=== PATIENT | male | born 1965 | race Two or more races ===

== ENCOUNTER 2021-01-08 01:39 | Inpatient (IN) | payer SELFPAY ==
[~2021-01-08] VITALS: Ht 182.9 cm; Wt 100.0 kg
--- NOTE | 2021-01-08 02:06 | PHYS DOC ---
Past Medical History Past Medical History: Alcoholism Past Surgical History: No Surgical History Smoking Status: Unknown if ever smoked Alcohol Use: Heavy General Adult EDM: Chief Complaint: ALCOHOL INTOXICATION HPI: HPI: 55-year-old male presents the emergency department after reportedly drinking alcohol and possibly falling. He is a poor historian, and cannot recall details of his history. He states he was at a [employer] party earlier today, was drinking alcohol, lost consciousness and then "cannot feel his feet "he speaks English only, civilian technician was used at the bedside for history taking. He is a overall poor historian secondary to his intoxication and clinical status Review of Systems: Review of Systems: ROS is otherwise impossible secondary to patient clinical condition Heart Score: C/O Chest Pain: No Allergies: Allergies: Allergies Coded Allergies Type Severity Reaction Last Updated Verified No Known Drug Allergies 01/08/21 No Physical Exam: PE: A: Airway intact. B: Bialteral breath sounds present and equal bilaterally. C: Radial pulses 2+ bilaterally. D: GCS 12 E: Patient fully exposed. Left ankle deformity is noted, forehead hematoma noted Head: Left forehead hematoma Ear: No blood in ear canals, no hemotympanum pinnae intact. Eyes: Pupils 3 mm equal and reactive, opens eyes spontaneously, no lacerations. Nose: No gross deformities, no fluid or blood from nares. Mouth: No lacerations or soft tissue deformities, teeth intact, airway intact, mucosa moist, no blood in oropharynx. Respiratory: Breath sounds equal bilaterally. Chest Wall: No obvious deformity. No lacerations, ecchymoses, or abrasion of the chest. Cardiovascular: Radial and dorsalis pedis 2+ and equal, extremities well perfused. Neck: No cervical spine tenderness. No bony step offs. Trachea midline. No soft tissue swelling. Back: No gross deformity or bony step-offs, no abrasions. Abdomen/Pelvis: Soft, non-tender, non-distended. No laxity in pelvis, nontender to palpation. Extremities: LUE: Moves independently and sensation intact, no deformities, lacerations or abrasions. RUE: Moves independently and sensation intact, no deformities, lacerations or abrasions. LLE: Left ankle deformity is noted, sensation intact, no lacerations or abrasions RLE: Moves independently and sensation intact, no deformities, lacerations or abrasions. Current Patient Data: Labs: Laboratory Tests Test 01/08/21 01:56 White Blood Count 7.0 x10^3/uL (4.0-11.0) Red Blood Count 4.99 x10^6/uL (4.30-5.70) Hemoglobin 15.5 g/dL (13.0-17.5) Hematocrit 43.3 % (39.0-53.0) Mean Corpuscular Volume 87 fL (79-100) Mean Corpuscular Hemoglobin 31 pg (25-35) Mean Corpuscular Hemoglobin Concent 36 g/dL (31-37) Red Cell Distribution Width 13.1 % (11.5-14.5) Platelet Count 196 x10^3/uL (140-400) Neutrophils (%) (Auto) 45 % (31-73) Lymphocytes (%) (Auto) 44 % (24-48) Monocytes (%) (Auto) 6 % (0-9) Eosinophils (%) (Auto) 5 % (0-3) Basophils (%) (Auto) 1 % (0-3) Neutrophils # (Auto) 3.1 x10^3/uL (1.8-7.7) Lymphocytes # (Auto) 3.1 x10^3/uL (1.0-4.8) Monocytes # (Auto) 0.4 x10^3/uL (0.0-1.1) Eosinophils # (Auto) 0.3 x10^3/uL (0.0-0.7) Basophils # (Auto) 0.0 x10^3/uL (0.0-0.2) Sodium Level 137 mmol/L (136-145) Potassium Level 3.4 mmol/L (3.5-5.1) Chloride Level 101 mmol/L (98-107) Carbon Dioxide Level 25 mmol/L (21-32) Anion Gap 11 (6-14) Blood Urea Nitrogen 10 mg/dL (8-26) Creatinine 1.0 mg/dL (0.7-1.3) Estimated GFR (Cockcroft-Gault) 78.2 BUN/Creatinine Ratio 10 (6-20) Glucose Level 127 mg/dL (70-99) Calcium Level 8.8 mg/dL (8.5-10.1) Total Bilirubin 0.2 mg/dL (0.2-1.0) Aspartate Amino Transf (AST/SGOT) 25 U/L (15-37) Alanine Aminotransferase (ALT/SGPT) 29 U/L (16-63) Alkaline Phosphatase 98 U/L (46-116) Troponin I Quantitative < 0.017 ng/mL (0.000-0.055) Total Protein 7.8 g/dL (6.4-8.2) Albumin 3.9 g/dL (3.4-5.0) Albumin/Globulin Ratio 1.0 (1.0-1.7) Ethyl Alcohol Level 297 mg/dL (0-10) Vital Signs: Vital Signs Date Time Temp Pulse Resp B/P (MAP) Pulse Ox O2 Delivery O2 Flow Rate FiO2 01/08/21 01:50 73 18 134/90 (105) 99 Radiology/Procedures: Radiology/Procedures: PROCEDURE: CT HEAD AND CERVICAL SPINE WO EXAMINATION: CT head and cervical spine without IV contrast INDICATION:55 years, Male, trauma. COMPARISON: None TECHNIQUE: Spiral acquisition of contiguous images from the skull base to the vertex were obtained. CT of the cervical spine was obtained using contiguous spiral imaging from the skull base to the upper thoracic level. Sagittal and coronal 2D reformatted series were provided by the technologist. Soft tissue and bone window algorithms were reviewed. Exposure: One or more of the following individualized dose reduction techniques were utilized for this examination: 1. Automated exposure control 2. Adjustment of the mA and/or kV according to patient size 3. Use of iterative reconstruction technique. FINDINGS: CT HEAD: The ventricles are normal in size. Neither mass, midline shift, intracranial hemorrhage, acute/subacute ischemic changes, nor extraaxial fluid collections are seen. The brain parenchyma is normal in appearance. Increased mucosal thickening of the ethmoid sinuses. Remaining paranasal sinuses, mastoid air cells, and middle ears are clear. The orbital contents appear within normal limits. CT CERVICAL SPINE: Anatomic alignment of the cervical spine is maintained. Neither fracture, subluxation, nor traumatic spondylolisthesis is seen. The vertebral body heights and intervertebral disk spaces are preserved. There is no evidence of a large intraspinal hematoma. The prevertebral and paravertebral soft tissues are within normal limits. IMPRESSION: CT HEAD: No evidence of acute intracranial abnormality. CT CERVICAL SPINE: No evidence of fracture or traumatic spondylolisthesis of the cervical spine. Electronically signed by: Nestor Godwin DO (01/08/2021 2:43 AM) Exam: Left ankle radiograph. Indication: Reason: ankle deformity / Spl. Instructions: / History: . Comparison: Unavailable. Findings: Mildly displaced obliquely oriented fracture of the medial malleolus with intra- articular extension. Also obliquely oriented distal fibular fracture extends to the level of the syndesmosis (Escoto B). No apparent intra-articular osseous fragments. No evidence of talar dome fracture. There is mild widening of the medial gutter. Asymmetric swelling about the ankle most pronounced of the late ral malleolus. Impression: 1. Mildly displaced obliquely oriented fracture of the medial malleolus with intra-articular extension. 2. Obliquely oriented distal fibular Escoto type B fracture. Electronically signed by: Nestor Godwin DO (01/08/2021 3:00 AM) Chest x-ray without obvious pneumothorax, fracture. Interpreted by me. Pelvis x-ray shows no acute fracture. Interpreted by me. Course & Med Decision Making: Course & Med Decision Making Patient with significant EtOH level, left ankle deformity, placed in a splint, orthopedics was consulted, patient will be admitted to the hospital under Dr. Capellan. I discussed the case with Dr. Moreno from trauma surgery who agrees with disposition family who later arrived at the bedside were updated on the patient's care. Tetanus was updated. Patient was maintaining his airway throughout the entire ED course Splint was placed in the emergency department: Left short leg splint. Neurovascularly intact, cap refill appropriate, splint appears in appropriate position with compartment soft. My Orders - ACE JONES DO Procedure Category Date Status Time Cardiac Monitoring ER 01/08/21 Transmitted 01:59 Continuous Pulse Ox ER 01/08/21 Transmitted 01:59 Cbc W Autodiff LAB 01/08/21 Complete 01:59 Comprehensive LAB 01/08/21 Complete Metabolic Panel 01:59 Protime With Inr LAB 01/08/21 In Process 01:59 Partial LAB 01/08/21 In Process Thromboplastin Time 01:59 Ua W Microscopic LAB 01/08/21 Logged 01:59 Drugs Of Abuse Ur LAB 01/08/21 Logged 01:59 Portable Chest 1v RAD 01/08/21 Taken 01:59 Pelvis RAD 01/08/21 Taken 01:59 Ethanol LAB 01/08/21 Complete 01:59 Insert 2 Large Bore KIRSTY 01/08/21 In Process Iv's 01:59 Vital Signs KIRSTY 01/08/21 In Process 01:59 End Tidal Co2 KIRSTY 01/08/21 In Process Monitoring 01:59 Type And Screen BBK 01/08/21 In Process 01:59 Troponini LAB 01/08/21 Complete 01:59 Ankle Left 3v RAD 01/08/21 Resulted 01:59 Ct Head [address] Cervical CT 01/08/21 Resulted Spine Wo 02:01 Er Bridge Order ADT 01/08/21 Transmitted 03:10 Code Status CODE 01/08/21 Transmitted 03:10 Vital Signs, Per Unit KIRSTY 01/08/21 In Process Protocol 03:10 Nothing By Mouth DIET 01/08/21 Transmitted Breakfast Bedrest KIRSTY 01/08/21 In Process 03:10 Ondansetron Pf PHA 01/08/21 Logged (Zofran) 03:15 Morphine Sulfate PHA 01/08/21 Logged (Morphine Sulfate) 03:15 Acetaminophen PHA 01/08/21 Logged (Tylenol) 03:15 Consult Physician By CONS 01/08/21 Transmitted Name 03:10 Consult Physician By CONS 01/08/21 Transmitted Name 03:10 Vital Signs Q4h KIRSTY 01/08/21 In Process 03:10 Splint KIRSTY 01/08/21 In Process 03:10 Diph,Pertuss(Acell),Tet PHA 01/08/21 Logged Vac/Pf (Adacel T 03:15 Departure Departure Impression: Primary Impression: Blunt head trauma Additional Impressions: Alcohol intoxication Closed left ankle fracture Disposition: 01 HOME / SELF CARE / HOMELESS Admitting Physician: WILVER ([place]) Condition: STABLE ACE JONES DO Jan 08, 2021 02:06
[2021-01-08 02:11] LABS: BASO % 1 % (0-3); EOS # 0.3 x10^3/uL (0.0-0.7); EOS % 5 % (0-3); HEMATOCRIT 43.3 % (39.0-53.0); HEMOGLOBIN 15.5 g/dL (13.0-17.5); LYMPH # 3.1 x10^3/uL (1.0-4.8); LYMPH % 44 % (24-48); MEAN CORPUSCULAR HEMOGLOBIN 31 pg (25-35); MEAN CORPUSCULAR HGB CONC 36 g/dL (31-37); MEAN CORPUSCULAR VOLUME 87 fL (79-100); MONO # 0.4 x10^3/uL (0.0-1.1); MONO % 6 % (0-9); NEUT # 3.1 x10^3/uL (1.8-7.7); NEUT % 45 % (31-73); PLATELET COUNT 196 x10^3/uL (140-400); RED BLOOD COUNT 4.99 x10^6/uL (4.30-5.70); RED CELL DISTRIBUTION WIDTH 13.1 % (11.5-14.5)
[2021-01-08 02:35] LABS: CALCIUM 8.8 mg/dL (8.5-10.1); GFR 78.2; POTASSIUM 3.4 mmol/L (3.5-5.1)
[2021-01-08 02:41] LABS: ALBUMIN 3.9 g/dL (3.4-5.0); TOTAL BILIRUBIN 0.2 mg/dL (0.2-1.0); TOTAL PROTEIN 7.8 g/dL (6.4-8.2)
--- NOTE | 2021-01-08 02:45 | RAD ---
EXAMINATION: CT head and cervical spine without IV contrast INDICATION:55 years, Male, trauma. COMPARISON: None TECHNIQUE: Spiral acquisition of contiguous images from the skull base to the vertex were obtained. C T of the cervical spine was obtained using contiguous spiral imaging from the skull base to the upper thoracic level. Sagittal and coronal 2D reformatted series were provided by the technologist. Soft t issue and bone window algorithms were reviewed. Exposure: One or more of the following individualized dose reduction techniques were utilized for thi s examination: 1. Automated exposure control 2. Adjustment of the mA and/or kV according to patient size 3. Use of iterative reconstruction technique. FINDINGS: CT HEAD: The ventricles are normal in size. Neither mass, midline shift, intracranial hemorrhage, acute/subacu te ischemic changes, nor extraaxial fluid collections are seen. The brain parenchyma is normal in linnette earance. Increased mucosal thickening of the ethmoid sinuses. Remaining paranasal sinuses, mastoid ai r cells, and middle ears are clear. The orbital contents appear within normal limits. CT CERVICAL SPINE: Anatomic alignment of the cervical spine is maintained. Neither fracture, subluxation, nor traumatic spondylolisthesis is seen. The vertebral body heights and intervertebral disk spaces are preserved. T here is no evidence of a large intraspinal hematoma. The prevertebral and paravertebral soft tissues are within normal limits. IMPRESSION: CT HEAD: No evidence of acute intracranial abnormality. CT CERVICAL SPINE: No evidence of fracture or traumatic spondylolisthesis of the cervical spine. Electronically signed by: Nestor Godwin DO (01/08/2021 2:43 AM) [facility]
--- NOTE | 2021-01-08 03:03 | RAD ---
Exam: Left ankle radiograph. Indication: Reason: ankle deformity / Spl. Instructions: / History: . Comparison: Unavailable. Findings: Mildly displaced obliquely oriented fracture of the medial malleolus with intra-articular extension. Also obliquely oriented distal fibular fracture extends to the level of the syndesmosis (Escoto B). No apparent intra-articular osseous fragments. No evidence of talar dome fracture. There is mild wideni ng of the medial gutter. Asymmetric swelling about the ankle most pronounced of the lateral malleolus . Impression: 1. Mildly displaced obliquely oriented fracture of the medial malleolus with intra-articular extensio n. 2. Obliquely oriented distal fibular Escoto type B fracture. Electronically signed by: Nestor Godwin DO (01/08/2021 3:00 AM) [facility]
[2021-01-08 03:13] LABS: PROTHROMBIN TIME PATIENT 12.6 SEC (11.7-14.0)
[2021-01-08] MEDS ORDERED: ACETAMINOPHEN 325 MG TABLET. PO PRN ×2 (03:15→08:45)
[2021-01-08] MEDS ORDERED: ONDANSETRON PF 4 MG/2 ML VIAL. IVP PRN ×2 (03:15→08:45)
[2021-01-08] MEDS ORDERED: DIPH,PERTUSS(ACELL),TET VAC/PF 0.5 ML SYRINGE. VAX IM ONE (03:30)
[2021-01-08] MEDS ORDERED: IV NORMAL SALINE 1000ML BAG 1,000 ML IV ONE (03:30)
[2021-01-08] MEDS: MORPHINE SULFATE 4 MG/ML INJ. IVP PRN ×2 (03:34→08:04)
--- NOTE | 2021-01-08 04:05 | RAD ---
Exam: Frontal and lateral views of the chest Indication: Reason: ankle deformity / Spl. Instructions: / History: Comparison: None Findings: Hypovolemic exam. Mildly prominent bronchovascular markings with associated peribronchial thickening. Scattered hazy bilateral airspace opacities, slightly increased in the left lower lobe no pleural ef fusion or pneumothorax. Normal cardiac silhouette. No acute osseous findings. Impression: Findings are suggestive of atypical/viral infection versus reactive airway disease, and/or atelectasi s. Electronically signed by: Nestor Godwin DO (01/08/2021 4:02 AM) [facility]
--- NOTE | 2021-01-08 04:07 | RAD ---
History: No acute osseous abnormalities. Comparison: None. Findings: No acute fracture. Normal alignment is preserved at bilateral hips. [id number] degene rative changes of bilateral hips and at the pubic symphysis. Impression: No acute osseous findings. Electronically signed by: Nestor Godwin DO (01/08/2021 4:04 AM) [facility]
[2021-01-08 04:36] LABS: BILIRUBIN,URINE NEGATIVE (NEG); CLARITY,URINE CLEAR; COLOR,URINE YELLOW; NITRITE,URINE NEGATIVE (NEG); PROTEIN,URINE NEGATIVE (NEG-TRACE); UROBILINOGEN,URINE 0.2 mg/dL (0.2 mg/dL)
[2021-01-08 04:43] LABS: BARBITURATES NEG (NEG); BENZODIAZEPINES NEG (NEG); CANNABINOIDS NEG (NEG); COCAINE NEG (NEG); METHADONE NEG (NEG); OPIATES POS (NEG); PHENCYCLIDINE NEG (NEG)
[2021-01-08 04:55] LABS: AMPHETAMINE/METHAMPHETAMINE NEG (NEG)
[2021-01-08 05:03] LABS: BACTERIA,URINE 0 /HPF (0-FEW); WBC,URINE OCC /HPF (0-4)
[2021-01-08 07:42] VITALS: BP 145/84
--- NOTE | 2021-01-08 08:35 | PDOC1 ---
History and Physical Date of Service: DOS: DATE: 01/08/21 TIME: 08:31 Chief Complaint: Chief Complain: Alcohol intoxication and ankle fracture History of Present Illness: HPI: History obtained from discussion with the ED physician and overnight hospitalist and chart review 55-year-old male presents the emergency department after reportedly drinking alcohol and possibly falling. He is a poor historian, and cannot recall details of his history. He states he was at a [employer] party earlier today, was drinking alcohol, lost consciousness and then "cannot feel his feet "he speaks Polish only, thermal engineer was used at the bedside for history taking. He is a overall poor historian secondary to his intoxication and clinical status Past Medical/Surgical History: PMH/PSH: Past Medical History: Alcoholism Past Surgical History: No Surgical History Allergies: Allergies: Coded Allergies: No Known Drug Allergies (Unverified , 01/08/21) Social History: Social History: Smoking Status: Unknown if ever smoked Alcohol Use: Heavy Current Medications: Current Medications Current Medications Ondansetron HCl (Zofran) 4 mg PRN Q8HRS PRN IVP NAUSEA/VOMITING 1ST CHOICE Last administered on 01/08/21at 03:34; Start 01/08/21 at 03:15; Stop 01/09/21 at 03:14 Morphine Sulfate (Morphine Sulfate) 4 mg PRN Q2HR PRN IVP SEVERE PAIN 7-10 Last administered on 01/08/21at 08:04; Start 01/08/21 at 03:15; Stop 01/09/21 at 03:14 Acetaminophen (Tylenol) 650 mg PRN Q4HRS PRN PO FEVER > 100.3'F; Start 01/08/21 at 03:15; Stop 01/09/21 at 03:14 Diphtheria/ Tetanus/Acell Pertussis (ADACEL TDap SYRINGE) 0.5 ml ONCE ONCE VAX IM Last administered on 01/08/21at 03:35; Start 01/08/21 at 03:30; Stop 01/08/21 at 03:31; Status DC Sodium Chloride 1,000 ml @ 1,000 mls/hr 1X ONCE IV Last administered on 01/08/21at 03:36; Start 01/08/21 at 03:30; Stop 01/08/21 at 04:29; Status DC ROS: Review of Systems Review of System Unable to obtain due to alcohol intoxication Physical Exam: Vital Signs: Vital Signs Date Time Temp Pulse Resp B/P (MAP) Pulse Ox O2 Delivery O2 Flow Rate FiO2 01/08/21 08:04 18 97 Room Air 01/08/21 03:57 94 133/85 (101) Physcial Exam: General: Well developed, well nourished, no acute distress, well appearing HEENT: Pupils equally round and reactive to light, EOMI, no discharge, normal conjunctiva Neck: Supple, no nuchal rigidity, no JVD, trachea midline, no tenderness Cardiac: RRR, no murmurs, no gallops, no rubs Chest/Lungs: CTAB, no wheeze, no rhonchi, no crackles Abdomen: soft, non-distended, no guarding, no peritoneal signs, non-tender Back: No tenderness Extremities: Left ankle deformity Neuro: Alert and oriented x 4, no focal deficits, normal speech Labs: Labs: Laboratory Tests Test 01/08/21 01:56 01/08/21 02:45 01/08/21 04:00 01/08/21 04:23 White Blood Count 7.0 x10^3/uL (4.0-11.0) Red Blood Count 4.99 x10^6/uL (4.30-5.70) Hemoglobin 15.5 g/dL (13.0-17.5) Hematocrit 43.3 % (39.0-53.0) Mean Corpuscular Volume 87 fL (79-100) Mean Corpuscular Hemoglobin 31 pg (25-35) Mean Corpuscular Hemoglobin Concent 36 g/dL (31-37) Red Cell Distribution Width 13.1 % (11.5-14.5) Platelet Count 196 x10^3/uL (140-400) Neutrophils (%) (Auto) 45 % (31-73) Lymphocytes (%) (Auto) 44 % (24-48) Monocytes (%) (Auto) 6 % (0-9) Eosinophils (%) (Auto) 5 % (0-3) Basophils (%) (Auto) 1 % (0-3) Neutrophils # (Auto) 3.1 x10^3/uL (1.8-7.7) Lymphocytes # (Auto) 3.1 x10^3/uL (1.0-4.8) Monocytes # (Auto) 0.4 x10^3/uL (0.0-1.1) Eosinophils # (Auto) 0.3 x10^3/uL (0.0-0.7) Basophils # (Auto) 0.0 x10^3/uL (0.0-0.2) Sodium Level 137 mmol/L (136-145) Potassium Level 3.4 mmol/L (3.5-5.1) Chloride Level 101 mmol/L (98-107) Carbon Dioxide Level 25 mmol/L (21-32) Anion Gap 11 (6-14) Blood Urea Nitrogen 10 mg/dL (8-26) Creatinine 1.0 mg/dL (0.7-1.3) Estimated GFR (Cockcroft-Gault) 78.2 BUN/Creatinine Ratio 10 (6-20) Glucose Level 127 mg/dL (70-99) Calcium Level 8.8 mg/dL (8.5-10.1) Total Bilirubin 0.2 mg/dL (0.2-1.0) Aspartate Amino Transf (AST/SGOT) 25 U/L (15-37) Alanine Aminotransferase (ALT/SGPT) 29 U/L (16-63) Alkaline Phosphatase 98 U/L (46-116) Troponin I Quantitative < 0.017 ng/mL (0.000-0.055) Total Protein 7.8 g/dL (6.4-8.2) Albumin 3.9 g/dL (3.4-5.0) Albumin/Globulin Ratio 1.0 (1.0-1.7) Ethyl Alcohol Level 297 mg/dL (0-10) Prothrombin Time 12.6 SEC (11.7-14.0) Prothromb Time International Ratio 0.9 (0.8-1.1) Activated Partial Thromboplast Time 30 SEC (24-38) SARS-CoV-2 Antigen (Rapid) Negative (NEGATIVE) Urine Collection Type Void Urine Color Yellow Urine Clarity Clear Urine pH 5.0 (<5.0-8.0) Urine Specific Beverly <=1.005 (1.000-1.030) Urine Protein Negative mg/dL (NEG-TRACE) Urine Glucose (UA) Negative mg/dL (NEG) Urine Ketones (Stick) Negative mg/dL (NEG) Urine Blood Negative (NEG) Urine Nitrite Negative (NEG) Urine Bilirubin Negative (NEG) Urine Urobilinogen Dipstick 0.2 mg/dL (0.2 mg/dL) Urine Leukocyte Esterase Negative (NEG) Urine RBC 1-2 /HPF (0-2) Urine WBC Occ /HPF (0-4) Urine Squamous Epithelial Cells None /LPF Urine Bacteria 0 /HPF (0-FEW) Urine Opiates Screen Pos (NEG) Urine Methadone Screen Neg (NEG) Urine Barbiturates Neg (NEG) Urine Phencyclidine Screen Neg (NEG) Urine Amphetamine/Methamphetamine Neg (NEG) Urine Benzodiazepines Screen Neg (NEG) Urine Cocaine Screen Neg (NEG) Urine Cannabinoids Screen Neg (NEG) Urine Ethyl Alcohol Pos (NEG) Laboratory Tests Test 01/08/21 01:56 01/08/21 02:45 01/08/21 04:00 01/08/21 04:23 White Blood Count 7.0 x10^3/uL (4.0-11.0) Red Blood Count 4.99 x10^6/uL (4.30-5.70) Hemoglobin 15.5 g/dL (13.0-17.5) Hematocrit 43.3 % (39.0-53.0) Mean Corpuscular Volume 87 fL (79-100) Mean Corpuscular Hemoglobin 31 pg (25-35) Mean Corpuscular Hemoglobin Concent 36 g/dL (31-37) Red Cell Distribution Width 13.1 % (11.5-14.5) Platelet Count 196 x10^3/uL (140-400) Neutrophils (%) (Auto) 45 % (31-73) Lymphocytes (%) (Auto) 44 % (24-48) Monocytes (%) (Auto) 6 % (0-9) Eosinophils (%) (Auto) 5 % (0-3) Basophils (%) (Auto) 1 % (0-3) Neutrophils # (Auto) 3.1 x10^3/uL (1.8-7.7) Lymphocytes # (Auto) 3.1 x10^3/uL (1.0-4.8) Monocytes # (Auto) 0.4 x10^3/uL (0.0-1.1) Eosinophils # (Auto) 0.3 x10^3/uL (0.0-0.7) Basophils # (Auto) 0.0 x10^3/uL (0.0-0.2) Sodium Level 137 mmol/L (136-145) Potassium Level 3.4 mmol/L (3.5-5.1) Chloride Level 101 mmol/L (98-107) Carbon Dioxide Level 25 mmol/L (21-32) Anion Gap 11 (6-14) Blood Urea Nitrogen 10 mg/dL (8-26) Creatinine 1.0 mg/dL (0.7-1.3) Estimated GFR (Cockcroft-Gault) 78.2 BUN/Creatinine Ratio 10 (6-20) Glucose Level 127 mg/dL (70-99) Calcium Level 8.8 mg/dL (8.5-10.1) Total Bilirubin 0.2 mg/dL (0.2-1.0) Aspartate Amino Transf (AST/SGOT) 25 U/L (15-37) Alanine Aminotransferase (ALT/SGPT) 29 U/L (16-63) Alkaline Phosphatase 98 U/L (46-116) Troponin I Quantitative < 0.017 ng/mL (0.000-0.055) Total Protein 7.8 g/dL (6.4-8.2) Albumin 3.9 g/dL (3.4-5.0) Albumin/Globulin Ratio 1.0 (1.0-1.7) Ethyl Alcohol Level 297 mg/dL (0-10) Prothrombin Time 12.6 SEC (11.7-14.0) Prothromb Time International Ratio 0.9 (0.8-1.1) Activated Partial Thromboplast Time 30 SEC (24-38) SARS-CoV-2 Antigen (Rapid) Negative (NEGATIVE) Urine Collection Type Void Urine Color Yellow Urine Clarity Clear Urine pH 5.0 (<5.0-8.0) Urine Specific Beverly <=1.005 (1.000-1.030) Urine Protein Negative mg/dL (NEG-TRACE) Urine Glucose (UA) Negative mg/dL (NEG) Urine Ketones (Stick) Negative mg/dL (NEG) Urine Blood Negative (NEG) Urine Nitrite Negative (NEG) Urine Bilirubin Negative (NEG) Urine Urobilinogen Dipstick 0.2 mg/dL (0.2 mg/dL) Urine Leukocyte Esterase Negative (NEG) Urine RBC 1-2 /HPF (0-2) Urine WBC Occ /HPF (0-4) Urine Squamous Epithelial Cells None /LPF Urine Bacteria 0 /HPF (0-FEW) Urine Opiates Screen Pos (NEG) Urine Methadone Screen Neg (NEG) Urine Barbiturates Neg (NEG) Urine Phencyclidine Screen Neg (NEG) Urine Amphetamine/Methamphetamine Neg (NEG) Urine Benzodiazepines Screen Neg (NEG) Urine Cocaine Screen Neg (NEG) Urine Cannabinoids Screen Neg (NEG) Urine Ethyl Alcohol Pos (NEG) Images: Images PROCEDURE: CT HEAD AND CERVICAL SPINE WO EXAMINATION: CT head and cervical spine without IV contrast INDICATION:55 years, Male, trauma. COMPARISON: None TECHNIQUE: Spiral acquisition of contiguous images from the skull base to the vertex were obtained. CT of the cervical spine was obtained using contiguous spiral imaging from the skull base to the upper thoracic level. Sagittal and coronal 2D reformatted series were provided by the technologist. Soft tissue and bone window algorithms were reviewed. Exposure: One or more of the following individualized dose reduction techniques were utilized for this examination: 1. Automated exposure control 2. Adjustment of the mA and/or kV according to patient size 3. Use of iterative reconstruction technique. FINDINGS: CT HEAD: The ventricles are normal in size. Neither mass, midline shift, intracranial hemorrhage, acute/subacute ischemic changes, nor extraaxial fluid collections are seen. The brain parenchyma is normal in appearance. Increased mucosal thickening of the ethmoid sinuses. Remaining paranasal sinuses, mastoid air cells, and middle ears are clear. The orbital contents appear within normal limits. CT CERVICAL SPINE: Anatomic alignment of the cervical spine is maintained. Neither fracture, subluxation, nor traumatic spondylolisthesis is seen. The vertebral body heights and intervertebral disk spaces are preserved. There is no evidence of a large intraspinal hematoma. The prevertebral and paravertebral soft tissues are within normal limits. IMPRESSION: CT HEAD: No evidence of acute intracranial abnormality. PROCEDURE: ANKLE LEFT 3V Exam: Left ankle radiograph. Indication: Reason: ankle deformity / Spl. Instructions: / History: . Comparison: Unavailable. Findings: Mildly displaced obliquely oriented fracture of the medial malleolus with intra- articular extension. Also obliquely oriented distal fibular fracture extends to the level of the syndesmosis (Escoto B). No apparent intra-articular osseous fragments. No evidence of talar dome fracture. There is mild widening of the medial gutter. Asymmetric swelling about the ankle most pronounced of the lateral malleolus. Impression: 1. Mildly displaced obliquely oriented fracture of the medial malleolus with intra-articular extension. 2. Obliquely oriented distal fibular Escoto type B fracture. Assessment/Plan Assessment/Plan Acute toxic encephalopathy Acute alcohol intoxication Mild hypokalemia Mildly displaced obliquely oriented fracture of the medial malleolus with intra- articular extension. Obliquely oriented distal fibular Escoto type B fracture. Admit to hospitalist service for further management Orthopedic consult for ankle fracture Will defer anticoagulation to orthopedics hold for surgery for DVT prophylaxis N.p.o. CODE STATUS full Discussed with RN and SW Disposition inpatient management as above DPOA: , Daria Medley Justifications for Admission Other Justification BEV HAUSER MD Jan 08, 2021 08:35
[2021-01-08] MEDS ORDERED: DEXTROSE 50% 25 GM / 50ML DISP.SYRIN. IV PRN (08:45)
[2021-01-08] MEDS ORDERED: SENNOSIDES 8.6 MG TABLET PO PRN (08:45)
[2021-01-08] MEDS ORDERED: MORPHINE SULFATE 2 MG/ML INJ. IV PRN (08:45)
[2021-01-08] MEDS ORDERED: DOCUSATE SODIUM 100 MG CAPSULE. PO PRN (08:45)
[2021-01-08] MEDS ORDERED: IV NORMAL SALINE 1000ML BAG 1,000 ML IV SCH (08:45)
[2021-01-08] MEDS ORDERED: HYDROcodone/APAP 5/325MG 1 TAB TABLET PO PRN ×2 (08:45)
[2021-01-08] MEDS ORDERED: PROCHLORPERAZINE 10 MG/2 ML VIAL. IV PRN (08:45)
[2021-01-08] MEDS ORDERED: MORPHINE SULFATE 2 MG/ML INJ. IVP PRN (08:45)
[2021-01-08] MEDS ORDERED: ENOXAPARIN 40 MG/0.4 ML SYRINGE. SQ SCH (09:00)
[2021-01-08] MEDS ORDERED: HYDR-2769 PO (11:16)
[2021-01-08] MEDS ORDERED: SENN1TAB99 PO (11:16)
--- NOTE | 2021-01-08 11:18 | DISCH ---
DISCHARGE INSTRUCTIONS Condition on Discharge Condition on Discharge: Stable (Do not drink alcohol while on pain medications. Please call Dr. Shepard, the orthopedic surgeon [facility]) Activity After Discharge Activity Instructions for Disc: Resume previous activity Lifting Instructions after Dis: Do not lift >10 pounds Exercise Instruction after Dis: Walk 15 min, 3 x per day Weight Bearing Status after Di: Non weight bearing Diet after Discharge Diet after Discharge: Cardiac Follow-Up Follow up with: Orthopedic surgery as soon as possible BEV HAUSER MD Jan 08, 2021 11:18
[2021-01-08] MEDS ORDERED: HYDROcodone/APAP 10/325 1 TAB TABLET PO ONE (11:45)
[2021-01-08] MEDS ORDERED: ONDANSETRON ODT 4 MG TAB.RAPDIS. ONE (12:03)
[2021-01-08] MEDS ORDERED: ONDANSETRON ODT 4 MG TAB.RAPDIS. PO ONE (12:15)
== END 2021-01-08 12:41 | disposition home or self-care (01) | DRG 562 ==
LOC: ER 01:39 → ED HOLD 03:09
PROVIDERS: ADMIT Internal Medicine; ATTEND Internal Medicine
DX: S82.53XA Displaced fracture of medial malleolus of unspecified tibia, initial encounter for closed fracture (principal); G92 Toxic encephalopathy; S82.62XA Displaced fracture of lateral malleolus of left fibula, initial encounter for closed fracture; E87.6 Hypokalemia; S82.892A Other fracture of left lower leg, initial encounter for closed fracture; F10.229 Alcohol dependence with intoxication, unspecified; S09.90XA Unspecified injury of head, initial encounter; X58.XXXA Exposure to other specified factors, initial encounter; Z20.822 Contact with and (suspected) exposure to COVID-19; W18.39XA Other fall on same level, initial encounter; Y93.89 Activity, other specified; Y92.89 Other specified places as the place of occurrence of the external cause; Y99.8 Other external cause status; Y90.2 Blood alcohol level of 40-59 mg/100 ml
CPT/HCPCS: 29515; 36415; 70450; 71045; 72125; 72170; 73610; 80053; 80307; 81001; 84484; 85025; 85610; 85730; 86850; 86900; 86901; 87426; 90471; 90715; G0480; J2270; J2405; J7030; U0003; U0005; 99285-25

== ENCOUNTER 2021-01-09 08:52 | Emergency (ER) | payer SELFPAY ==
[~2021-01-09] VITALS: Ht 175.3 cm; Wt 77.0 kg
[~2021-01-09 08:52] MED LIST: HYDR-2769 PO; SENN1TAB99 PO
[2021-01-09 09:52] VITALS: BP 130/91
[2021-01-09] MEDS ORDERED: KETOROLAC 60 MG/2 ML VIAL. IM ONE (10:00)
[2021-01-09] MEDS ORDERED: fentaNYL PF VIAL 100 MCG/2 ML VIAL IM ONE (10:00)
[2021-01-09] MEDS ORDERED: ONDANSETRON ODT 4 MG TAB.RAPDIS. PO ONE (10:00)
--- NOTE | 2021-01-09 10:29 | PHYS DOC ---
Past Medical History Past Medical History: Alcoholism Past Surgical History: No Surgical History Smoking Status: Unknown if ever smoked Alcohol Use: Heavy General Adult EDM: Chief Complaint: FOOT INJURY PAIN HPI: HPI: Patient is a 55 year old male presents emergency department chief complaint of left ankle pain from an acute fracture, patient reports he is here for his surgery. Patient states he was seen here yesterday morning at [facility] and admitted to the hospital, was discharged later that evening with instructions to call this morning with Dr. Shepard's orthopedic surgery office for ankle surgery today at 8 AM. Patient reports nausea after taking pain medications last night, has not taken any pain medications since 11 PM yesterday. Denies vomiting. Reports a 7 out of 10 left ankle pain. Patient denies other physical complaints or physical concerns. Review of Systems: Review of Systems: 14 body systems of review of systems have been reviewed. See HPI for pertinent positives and negative responses, otherwise all other systems are negative, nonpertinent or noncontributory. Constitutional: Negative except as outlined in HPI above. Skin: Negative except as outlined in HPI above. Eyes: Negative except as outlined in HPI above. HENT: Negative except as outlined in HPI above. Respiratory: Negative except as outlined in HPI above. Cardiovascular: Negative except as outlined in HPI above. GI: Negative except as outlined in HPI above. : Negative except as outlined in HPI above. Musculoskeletal: Negative except as outlined in HPI above. Integument: Negative except as outlined in HPI above. Neurologic: Negative except as outlined in HPI above. Endocrine: Negative except as outlined in HPI above. Lymphatic: Negative except as outlined in HPI above. Psychiatric: Negative except as outlined in HPI above. Heart Score: C/O Chest Pain: No Risk Factors: Risk Factors: DM, Current or recent (<one month) smoker, HTN, HLP, family history of CAD, obesity. Risk Scores: Score 0 - 3: 2.5% MACE over next 6 weeks - Discharge Home Score 4 - 6: 20.3% MACE over next 6 weeks - Admit for Clinical Observation Score 7 - 10: 72.7% MACE over next 6 weeks - Early Invasive Strategies Current Medications: Current Medications Medications (Trade) Dose Ordered Sig/Janee Start Time Stop Time Status Last Admin Dose Admin Fentanyl Citrate (Fentanyl 2ml Vial) 100 mcg 1X ONCE 01/09/21 10:00 01/09/21 10:01 DC 9/13/21 10:15 100 MCG Ketorolac Tromethamine (Toradol Im) 60 mg 1X ONCE 01/09/21 10:00 01/09/21 10:01 DC 01/09/21 10:16 60 MG Ondansetron HCl (Zofran Odt) 4 mg 1X ONCE 01/09/21 10:00 01/09/21 10:01 DC 01/09/21 10:14 4 MG Allergies: Allergies: Allergies Coded Allergies Type Severity Reaction Last Updated Verified No Known Drug Allergies 01/08/21 No Physical Exam: PE: Constitutional: Well developed, well nourished, no acute distress, non-toxic appearance. 55-year-old male in no apparent distress. HENT: Normocephalic, atraumatic. Eyes: Conjunctiva normal, no discharge. Neck: Normal range of motion, no stridor. Cardiovascular: No cyanosis appreciated, distal cap refill less than 2 seconds. Lungs & Thorax: Patient is in no respiratory distress, no audible adventitious lung sounds appreciated. Abdomen: Nontender, no abnormalities noted. Skin: Warm, dry, no erythema, no rash. Back: No tenderness, no deformities. Extremities: No tenderness, no cyanosis, no clubbing, ROM intact, no edema. Except for left lower extremity, satisfactorily appearing posterior OCL in place, intact, all 5 toes exposed as expected, distal cap refill less than 2 seconds, toes are pink, no swelling or edema appreciated. Neurologic: Alert and oriented X 3, normal motor function, normal sensory function, no focal deficits noted. Psychologic: Affect normal, judgement normal, mood normal. Current Patient Data: Vital Signs: Vital Signs Date Time Temp Pulse Resp B/P (MAP) Pulse Ox O2 Delivery O2 Flow Rate FiO2 01/09/21 10:15 16 01/09/21 09:52 98.9 85 130/91 (104) 95 Room Air 98.9 EKG: EKG: [] Radiology/Procedures: Radiology/Procedures: [] Course & Med Decision Making: Course & Med Decision Making Pertinent Labs and Imaging studies reviewed. (See chart for details) 55-year-old male, vital signs reviewed, presents emergency department concerning having surgery today for his left ankle fracture. Patient did have discharge paperwork from yesterday from [facility] instructed him to call Dr. Shepard's office this morning for an appointment. Patient reports that he called but has not received any call back and came to the emergency department for his surgery. Patient's physical examination nonconcerning for compartment syndrome, there is no numbness or loss of sensation, distal cap refills less than 2 seconds, satisfactory active range of motion of toes. Discussed with patient I will call orthopedic office to investigate appointment status, will make appointment for him if appointment is not already in place, patient is amenable to this plan. Called orthopedic surgeon specialist Dr. Shepard's office, appointment made for this January 12 at [address] Arroyo. Discussed appointment with patient, ice 30 minutes on 30 minutes off, elevation of left lower extremity, patient gave verbal understanding of home care of his left ankle fracture, is amenable to ED discharge planning, understands appointment for this December at 9 AM. Discussed with the patient all findings and diagnostic testing as well as the need to follow-up with their primary care provider for further evaluation and treatment or return to the ED if any new or worsening symptoms. Strict return precautions were also discussed at length, the patient voiced understanding and agreement with the discharge planning. The patient was nontoxic in appearance, in no apparent distress, and hemodynamically stable at the time of disposition. Edwina Disclaimer: Edwina Disclaimer: This electronic medical record was generated, in whole or in part, using a voice recognition dictation system. Departure Departure Impression: Primary Impression: Left ankle pain Qualified Codes: M25.572 - Pain in left ankle and joints of left foot Additional Impression: Closed left ankle fracture Qualified Codes: S82.892S - Other fracture of left lower leg, sequela Disposition: HOME / SELF CARE / HOMELESS Condition: GOOD Referrals: NO PCP (PCP) MEHREEN ARROYO DPM Patient Instructions: Ankle Fracture Additional Instructions: You were seen today in the emergency department for pain to your left ankle, an appointment has been made with Dr. Arroyo for this coming January 12 at 9 AM. Please show up to the [facility] attached to this hospital on [address] [place]. [address]. As we discussed, please use ice packs 30 minutes on and 30 minutes off with elevation of your ankle above the level of your heart while awake until your appointment time. Please return to the emergency department for worsening symptoms or other concerns. Thank you for visiting our Emergency Department. It was a pleasure taking care of you today in the emergency department and we appreciate you trusting us with your care. If any additional problems come up don't hesitate to return to visit us. Please follow up with your primary care provider so they can plan additional care if needed and know about the problem that you had. If symptoms worsen come back to the Emergency Department. Any concerning symptoms that start such as c hest pain, shortness of air, weakness or numbness on one side of the body, running high fevers or any other concerning symptoms return to the ER. Usted fue visto hoy en el departamento de emergencias por dolor en ghosh tobillo cirstel, se ambrose programado alta jose roberto con el Dr. Arroyo para el prximo jueves a las 9 AM. Presntese en el edificio [facility] adjunto a che hospital en [address] [place]. [address]. Rhys ya comentamos, utilice compresas de hielo enzo 30 minutos y 30 minutos sin levantar el tobillo por encima del nivel del corazn mientras est despierto hasta la hora de ghosh jose roberto. Regrese al departamento de emergencias si los sntomas empeoran u otras inquietudes. Ross por visitar nuestro Departamento de Emergencias. Fue un p lacer atenderlo hoderek en el departamento de emergencias y le agradecemos que nos haya confiado ghosh atencin. Si surge algn problema adicional, no dude en volver a visitarnos. Abhishek un seguimiento con ghosh proveedor de atencin primaria para que puedan planificar atencin adicional si es necesario y conocer el problema que tuvo. Si los sntomas empeoran, regrese al Departamento de Emergencias. Cualquier sntoma preocupante que comience, rhys dolor en el pecho, falta de aire, debilidad o entumecimiento en un lado del cuerpo, fiebre marlene o cualquier otro sntoma preocupante, regresa a la mitzi de emergencias. KENNA THOMAS [employer] Jan 09, 2021 10:29
== END 2021-01-09 10:44 | disposition home or self-care (01) ==
LOC: ER 08:52
DX: S82.892S Other fracture of left lower leg, sequela (principal); M25.572 Pain in left ankle and joints of left foot; X58.XXXS Exposure to other specified factors, sequela
CPT/HCPCS: 96372; 99284; J1885; J3010

== ENCOUNTER 2021-01-11 06:43 | Day surgery (SDC) | payer SELFPAY ==
[~2021-01-11] VITALS: Ht 175.3 cm; Wt 77.0 kg
[~2021-01-11 06:43] MED LIST changes: +HYDROmorphone 2 MG/ML VIAL IVP PRN; +IV RINGERS,LACTATED 1000ML 1,000 ML IV SCH; +MORPHINE SULFATE 2 MG/ML INJ. IVP PRN; +PROCHLORPERAZINE 10 MG/2 ML VIAL. IVP PRN; +fentaNYL PF VIAL 100 MCG/2 ML VIAL IVP PRN
--- NOTE | 2021-01-11 07:08 | PDOC1 ---
History and Physical Date of Admission Date of Admission DATE: 01/11/21 TIME: 07:08 Identification/Chief Complaint Chief Complaint Left ankle fracture Source Source: Patient History of Present Illness History of Present Illness Mr Medley is a 55-year-old male with past medical history of heavy alcohol use who presents to outpatient surgery for ORIF of left ankle after a trimalleolar fracture on 01/08/2021. He was at a constitution party on 01/07/2021, was drinking alcohol, lost consciousness and then noted he couldn't stand and had severe pain, came to the ED around 0200. He was admitted for confusion, ETOH level 297, and after 24 hours monitoring was discharged home with outpatient orthopedic surgery follow up. He returned to emergency department on 01/09/2021 as he was instructed to follow up for surgery ED contacted orthopedic surgery office and was scheduled with Dr. Arroyo. He has not numbness or tingling. took pain medication at 2300 last night. has been using ice 30 minutes on 30 minutes off, elevation of left lower extremity. No shortness of breath or chest pain. He is UTD on his COVID 19 vaccine x2 with [employer] and pre-operatively negative testing from 01/08/2021. He takes no medications, does not smoke, does drink moderately heavily, does not use illicit drugs. No prior history of bleeding problems or clotting disorders. He previously had no problems with anesthesia. All questions answered. EKG with NSR 91bpm and QTc 432. Normal axis and intervals, no ST segment or T- wave abnormalities Past Medical History Cardiovascular: No pertinent hx Pulmonary: No pertinent hx Past Surgical History Past Surgical History: Other (Left ear - stapes - [facility]) Family History Family History: Hypertension (Mother) Social History Smoke: No ALCOHOL: heavy Drugs: None Current Medications Current Medications Current Medications Fentanyl Citrate (Fentanyl 2ml Vial) 25 mcg PRN Q5MIN PRN IVP MILD PAIN 1-3; Start 01/11/21 at 06:00; Stop 01/11/21 at 20:00 Fentanyl Citrate (Fentanyl 2ml Vial) 50 mcg PRN Q5MIN PRN IVP MODERATE PAIN 4- 6; Start 01/11/21 at 06:00; Stop 01/11/21 at 20:00 Morphine Sulfate (Morphine Sulfate) 1 mg PRN Q10MIN PRN IVP SEVERE PAIN 7-10; Start 01/11/21 at 06:00; Stop 01/11/21 at 20:00 Ringer's Solution 1,000 ml @ 30 mls/hr Q24H IV ; Start 01/11/21 at 06:00; Stop 01/11/21 at 17:59 Hydromorphone HCl (Dilaudid) 0.5 mg PRN Q10MIN PRN IVP SEVERE PAIN 7-10, 2nd CHOICE; Start 01/11/21 at 06:00; Stop 01/11/21 at 20:00 Prochlorperazine Edisylate (Compazine) 5 mg PACU PRN PRN IVP NAUSEA, MRX1; Start 01/11/21 at 06:00; Stop 01/11/21 at 20:00 Cefazolin Sodium/ Dextrose 50 ml @ 100 mls/hr 1X PREOP PRN IV PRIOR TO PROCEDURE; Start 01/11/21 at 06:00; Stop 01/11/21 at 18:00 Active Scripts Active Senna-Docusate Sodium Tablet (Sennosides/Docusate Sodium) 1 Each Tablet 2 Tab PO BID 5 Days Hydrocodone-Apap 10-325 (Hydrocodone Bit/Acetaminophen) 1 Tab Tablet 1 Tab PO PRN Q6HRS PRN 3 Days Allergies Allergies: Coded Allergies: No Known Drug Allergies (Unverified , 01/11/21) ROS General: No: Chills, Night Sweats, Fatigue, Malaise, Appetite, Other PSYCHOLOGICAL ROS: No: Anxiety, Behavioral Disorder, Concentration difficultie, Decreased libido, Depression, Disorientation, Hallucinations, Hostility, Irritablity, Memory difficulties, Mood Swings, Obsessive thoughts, Physical abu se, Sexual abuse, Sleep disturbances, Suicidal ideation, Other Eyes: No Blurry vision, No Decreased vision, No Double vision, No Dry eyes, No Excessive tearing, No Eye Pain, No Itchy Eyes, No Loss of vision, No Photophobia, No Scotomata, No Uses contacts, No Uses glasses, No Other HEENT: No: Heacaches, Visual Changes, Hearing change, Nasal congestion, Nasal discharge, Oral lesions, Sinus pain, Sore Throat, Epistaxis, Sneezing, Snoring, Tinnitus, Vertigo, Vocal changes, Other ALLERGY AND IMMUNOLOGY: No: Hives, Insect Bite Sensitivity, Itchy/Watery Eyes, Nasal Congestion, Post Nasal Drip, Seasonal Allergies, Other Hematological and Lymphatic: No: Bleeding Problems, Blood Clots, Blood Transfusions, Brusing, Night Sweats, Pallor, Swollen Lymph Nodes, Other ENDOCRINE: No: Breast Changes, Galactorrhea, Hair Pattern Changes, Hot Flashes, Malaise/lethargy, Mood Swings, Palpitations, Polydipsia/polyuria, Skin Changes, Temperature Intolerance, Unexpected Weight Changes, Other Breast: No New/Changing Breast Lumps, No Nipple changes, No Nipple discharge, No Other Respiratory: No: Cough, Hemoptysis, Orthopnea, Pleuritic Pain, Shortness of breath, SOB with excertion, Sputum Changes, Stridor, Tachypnea, Wheezing, Other Cardiovascular: No Chest Pain, No Palpitations, No Orthopnea, No Paroxysmal Noc. Dyspnea, No Edema, No Lt Headedness, No Other Gastrointestinal: No Nausea, No Vomiting, No Abdominal Pain, No Diarrhea, No Constipation, No Melena, No Hematochezia, No Other Genitourinary: No Dysuria, No Frequency, No Incontinence, No Hematuria, No Retention, No Discharge, No Urgency, No Pain, No Flank Pain, No Other, No , No , No , No , No , No , No Musculoskeletal: Yes Gait Disturbance, Yes Joint Pain, Yes Joint Stiffness, Yes Joint Swelling; No Muscle Pain, No Muscular Weakness, No Pain In: (Left ankle), No Swelling In:, No Other Neurological: No Behavorial Changes, No Bowel/Bladder ControlChng, No Confusion, No Dizziness, No Gait Disturbance, No Headaches, No Impaired Coord/balance, No Memory Loss, No Numbness/Tingling, No Seizures, No Speech Problems, No Tremors, No Visual Changes, No Weakness, No Other Skin: No Dry Skin, No Eczema, No Hair Changes, No Lumps, No Mole Changes, No Mottling, No Nail Changes, No Pruritus, No Rash, No Skin Lesion Changes, No Other, No Acne Physical Exam General: Alert, Oriented X3, Cooperative, mild distress HEENT: Atraumatic, PERRLA, EOMI, Mucous membr. moist/pink Lungs: Clear to auscultation, Normal air movement Heart: S1S2, RRR, no thrills, no rubs, no gallops, no murmurs Abdomen: Normal bowel sounds, Soft, No tenderness, No hepatosplenomegaly, No masses Rectal Exam: not examined Extremities: No clubbing, No cyanosis, Normal pulses, Other (left ankle swollen in hard spint 3 way) Skin: No rashes, No breakdown, No significant lesion Neuro: Normal speech, Strength at 5/5 X4 ext, Normal tone, Sensation intact, Cranial nerves 3-12 NL, Reflexes 2+, Other (no compartment syndrome, there is no numbness or loss of sensation, distal cap refills less than 2 seconds, satisfactory active range of motion of toes.) Psych/Mental Status: Mental status NL, Mood NL Images Images Images PROCEDURE: CT HEAD AND CERVICAL SPINE WO EXAMINATION: CT head and cervical spine without IV contrast INDICATION:55 years, Male, trauma. COMPARISON: None TECHNIQUE: Spiral acquisition of contiguous images from the skull base to the vertex were obtained. CT of the cervical spine was obtained using contiguous spiral imaging from the skull base to the upper thoracic level. Sagittal and coronal 2D reformatted series were provided by the technologist. Soft tissue and bone window algorithms were reviewed. Exposure: One or more of the following individualized dose reduction techniques were utilized for this examination: 1. Automated exposure control 2. Adjustment of the mA and/or kV according to patient size 3. Use of iterative reconstruction technique. FINDINGS: CT HEAD: The ventricles are normal in size. Neither mass, midline shift, intracranial hemorrhage, acute/subacute ischemic changes, nor extraaxial fluid collections are seen. The brain parenchyma is normal in appearance. Increased mucosal thickening of the ethmoid sinuses. Remaining paranasal sinuses, mastoid air cells, and middle ears are clear. The orbital contents appear within normal limits. CT CERVICAL SPINE: Anatomic alignment of the cervical spine is maintained. Neither fracture, subluxation, nor traumatic spondylolisthesis is seen. The vertebral body heights and intervertebral disk spaces are preserved. There is no evidence of a large intraspinal hematoma. The prevertebral and paravertebral soft tissues are within normal limits. IMPRESSION: CT HEAD: No evidence of acute intracranial abnormality. PROCEDURE: ANKLE LEFT 3V Exam: Left ankle radiograph. Indication: Reason: ankle deformity / Spl. Instructions: / History: . Comparison: Unavailable. Findings: Mildly displaced obliquely oriented fracture of the medial malleolus with intra- articular extension. Also obliquely oriented distal fibular fracture extends to the level of the syndesmosis (Escoto B). No apparent intra-articular osseous fragments. No evidence of talar dome fracture. There is mild widening of the medial gutter. Asymmetric swelling about the ankle most pronounced of the lateral malleolus. Impression: 1. Mildly displaced obliquely oriented fracture of the medial malleolus with intra-articular extension. 2. Obliquely oriented distal fibular Escoto type B fracture. Assessment/Plan Assessment/Plan Acute toxic encephalopathy Acute alcohol intoxication Mild hypokalemia Mildly displaced obliquely oriented fracture of the medial malleolus with intra- articular extension. Obliquely oriented distal fibular Escoto type B fracture. Admit to hospitalist service for further management Orthopedic consult for ankle fracture Will defer anticoagulation to orthopedics hold for surgery for DVT prophylaxis N.p.o. CODE STATUS full Discussed with RN and SW Disposition inpatient management as above DPOA: , Daria Medley VTE Prophylaxis Ordered VTE Prophylaxis Devices: Yes VTE Pharmacological Prophylaxi: No Assessment/Plan Assessment/Plan A/P: Left trimalleolar fracture - pre-operative EKG ordered for male greater than age 50 with no prior EKG. No further testing required for low risk surgery. EKG with NSR 91bpm and QTc 432. Normal axis and intervals, no ST segment or T-wave abnormalities ETOH heavy use - no history of withdrawal or seizures or hospital admissions. No alcohol intake since 01/08/2021 FEN - NPO PPX - SCDs FULL CODE Dispo - normal EKG, no further testing prior to planned low risk surgery. Can call if need for inpatient admission, otherwise can discharge home with pain medication and outpatient orthopedic surgery follow up, ASA for thromboprophylaxis, though low risk for DVT Justifications for Admission Other Justification Altered mental status due to alcohol intoxication and left ankle fracture LEIGH ANN GAMBOA MD Jan 11, 2021 07:08
[2021-01-11] MEDS ORDERED: BUPIVACAINE MPF 0.25% 30 ML VIAL. ONE (07:09)
[2021-01-11 07:17] VITALS: BP 125/82
--- NOTE | 2021-01-11 07:37 | EKG ---
[facility] [address] [place] [address] Test Date: 2021-01-11 Test Time: 07:32:39 Pat Name: ANILA LACY Department: Room: Gender: M [employer] Sticker: ISI : [id number] Requested By: LEIGH ANN GAMBOA Order Number: [id number] Reading MD: Axel Mckeon Measurements Intervals Rhodes Rate: 91 P: 56 DC: 132 QRS: 19 QRSD: 80 T: 51 QT: 350 QTc: 432 Interpretive Statements SINUS RHYTHM NORMAL ECG RI6.02 No previous ECG available for comparison Electronically Signed On 01-18-2021 14:17:04 CDT by Axel Mckeon
[2021-01-11] MEDS ORDERED: BUPIVACAINE MPF 0.5% 30 ML VIAL. ONE (07:48)
[2021-01-11] MEDS ORDERED: MIDAZOLAM HCL/PF 2 MG/2 ML VIAL. ONE (07:50)
[2021-01-11] MEDS ORDERED: ROCURONIUM 50 MG/5 ML VIAL. ONE (08:14)
[2021-01-11] MEDS ORDERED: fentaNYL PF VIAL 100 MCG/2 ML VIAL ONE (08:14)
[2021-01-11] MEDS ORDERED: fentaNYL PF VIAL 250 MCG/5 ML VIAL ONE (08:56)
[2021-01-11] MEDS ORDERED: PROPOFOL 10 MG/ML (20ML) VIAL. IV ONE (10:10)
[2021-01-11] MEDS ORDERED: DEXAMETHASONE SOD PHOS 4 MG/ML VIAL ONE (10:10)
[2021-01-11] MEDS ORDERED: SEVOFLURANE > 120 MINUTES. IH ONE (10:10)
[2021-01-11] MEDS ORDERED: ONDANSETRON PF 4 MG/2 ML VIAL. ONE (10:10)
[2021-01-11] MEDS ORDERED: ACETAMINOPHEN 325 MG TABLET. PO ONE (11:45)
[2021-01-11] MEDS ORDERED: GABAPENTIN 100 MG CAPSULE. PO ONE (11:45)
[2021-01-11] MEDS ORDERED: oxyCODONE/APAP 5/325 1 TAB TABLET PO ONE (11:45)
[2021-01-11] MEDS ORDERED: ONDANSETRON PF 4 MG/2 ML VIAL. IVP PRN (11:45)
[2021-01-11] MEDS ORDERED: HYDROmorphone 2 MG/ML VIAL ONE ×2 (11:51→12:24)
[2021-01-11] MEDS ORDERED: HYDROmorphone 2 MG/ML VIAL IVP ONE (12:00)
--- NOTE | 2021-01-11 12:02 | PDOC4 ---
OPERATIVE NOTE Date: Date: Jan 11, 2021 Pre-Op Diagnosis: Left trimalleolar ankle fracture, displaced Post-Op Diagnosis: Same as above Procedure Performed: Left trimalleolar open reduction and internal fixation Surgeon: Mehreen Burroughs DPM Anesthesia Type: General Blood Loss: 5 cc Specimans Obtained: None Findings: Spiral posterior fibula fracture, Colten 2B posterior medial fracture extending from the posterior metaphysis anteriorly and medially to the medial malleolus. There is also an avulsion fragment to the anterior colliculus of the tibia. There is no significant talar OCD lesion, medially or laterally. Intraoperative stress test was insignificant for syndesmotic joint instability peer Complications: None Operative Note: Patient received a popliteal block in the preop area to the left surgical lower extremity, administered by the anesthesiologist. Under mild sedation, patient was brought to the operating room. A time out was performed, to confirm patient's identity, location of surgery, and procedure. After induction of general anesthesia and intravenous antibiotics, a well-padded pneumatic thigh to urniquet was placed onto left lower extremity. Patient was then transferred to the operating table in a prone position with all the osseous prominences well- padded. The left lower extremity was scrubbed, prepped and draped in the usual sterile manner. Under intraoperative x-ray guidance, the distal medial and lateral malleolar fracture apices, center axial fibula were identified and marked for preoperative incision and surgical planning. An Esmarch bandage was utilized to exsanguinate the lower leg, and the tourniquet was inflated to 250mmHg. The attention was directed to the medial posterior tibia where a curvilinear incision was made between the medial margin of the Achilles tendon and the posterior margin of the tibia traversing distally to the central distal medial malleolus. The incision was carried deep with blunt dissection and a wet Ray- Mendy. Deep fascia was encountered and Metzenbaum scissors were used to release the superficial retinaculum and also the tendon sheath of PT in line with the incision site. The PT tendon was mobilized anteriorly, and a window was created between the PT tendon and FDL with care to protect the neurovascular bundle just posterior to the FDL. Care was also taken to preserve the PITFL and ankle capsule to allow ligamentolaxity reduction. Then the fracture site was exposed and visualized with a periosteal elevator. The Colten 2B fragments extended from the posterior proximal tibia to the anterior medial central aspect of the distal tibial malleolus. there was also a comminuted avulsion fracture to the anterior colliculus of the tibia. The medial Colten 2B fracture was immobilized and interposed hematoma was excised. Reduction was achieved with a ball spike and also confirmed through the anterior cortical read and intraoperative x-ray. An antiglide, anatomical 8 hole plate was placed to capture and stabilize the distal fragment. A 3.5mm trick screw was placed followed by proximal screw to conform the plate onto the cortex. Then the distal plate was affixed with 3.5 m m nonlocking cortical screws. Intraoperative x-ray remarked adequate posterior tibial fracture reduction, adequate and satisfactory hardware placement and length. The anterior medial portion of the Colten 2B fracture was reduced a dental pick. Intraoperative x-ray remarked adequate reduction ankle mortise. Then two 4 mm partially-threaded cancellous screws using standard AO techniques, starting from the posterior colliculus and inter-collicular space. Then the anterior collicular fragment was reduced with a dental pick and stabilized with a 4.0 millimeter partially-threaded screw with a washer to reduce iatrogenic/stress fracture. Intraoperative x-ray remarked adequate hardware position and length with islam of the ankle mortise alignment. The attention was directed to the left ankle where a standard lateral approach was performed. Great care was taken to identify and retract all the neurovascular bundles including the superficial peroneal nerve and sural nerve. All bleeders were cauterized as necessary. Using sharp and blunt dissection, incision was taken deep to periosteum which was incised. Intraoperatively, we found the sural nerve directly crossing the fracture site laterally near posterior fibular spike. The nerve was retracted and protected throughout the procedure. The fracture pattern was spiral posteriorly exiting anteriorly at the distal fibula. The hematoma was evacuated and all interposed periosteum was removed from the fracture site. The wound was irrigated with copious saline solution. At this time, the fracture was reduced with 2 bone clamps. Using standard AO technique, the fracture was stabilized with 2 3.5 millimeter screws from P to A and A to P. Intraoperative x-ray noted adequate fibular length islam with restored dime sign. Then a standard anatomical fibular plate was placed to the lateral fibula and temporarily affixed with 2 olive wires. Intraoperative x-ray noted adequate position allowing adequate proximal fracture bridging. Then using standard AO techniques, a combination of locking and nonlocking 3.5 millimeter screws were used to affix the plate to the fibula. Again intraoperative x-ray noted adequate hardware position and length. Intraoperative syndesmotic stress test was performed which was unremarkable for diastases to the medial gutter or to the tib-fib joint. The wounds were copiously irrigated with normal saline. The medial retinaculum and PT tendon sheath were repaired with 3-0 Vicryl. Care was taken not to violate the neurovascular bundle posterior to FDL. The fibular deep fascia was closed with 3-0 Vicryl while taking precautions to avoid sural nerve adhesion. The skin was closed in layers 4-0 Monocryl, and skin latosha. Surgical sites were covered with Betadine soaked Adaptic's. 18 cc of 0.25% Marcaine plain was infiltrated into the surgical site for postoperative anesthesia augmentation. A dry sterile dressing and a well padded posterior splint with added sugar tong was applied to left lower extremity while the ankle with held dorsiflexed and inverted. The tourniquet was deflated at this time and hyperemia was noted to the operative foot and leg. Patient tolerated anesthesia, procedure well with vascular status intact to the surgical lower extremity. Patient was then transferred to PACU for continued recovery. Pending 3 view of the surgical ankle x-ray. MEHREEN BURROUGHS DPM Jan 11, 2021 12:02
--- NOTE | 2021-01-11 12:29 | RAD ---
EXAM: Left ankle, 4 views. HISTORY: Fracture fixation. COMPARISON: 01/08/2021 FINDINGS: 4 views of the left ankle are obtained. There is internal fixation of trimalleolar fracture s with multiple plates and screws in anatomic alignment. There is diffuse soft tissue swelling. There are surgical skin latosha. There is external casting material. IMPRESSION: Internal fixation of trimalleolar fractures. Alignment is significantly improved. Electronically signed by: Felicita Davis MD (01/11/2021 12:27 PM) [id number]
[2021-01-11] MEDS ORDERED: HYDROcodone/APAP 10/325 1 TAB TABLET PO ONE (12:30)
[2021-01-11] MEDS ORDERED: HYDROcodone/APAP 10/325 1 TAB TABLET ONE (12:35)
[2021-01-11 12:56] VITALS: BP 143/93
== END 2021-01-11 13:42 | disposition home or self-care (01) ==
LOC: SURG 06:43
PROVIDERS: ATTEND Podiatrist
DX: S82.852A Displaced trimalleolar fracture of left lower leg, initial encounter for closed fracture (principal); Z20.822 Contact with and (suspected) exposure to COVID-19; Z79.899 Other long term (current) drug therapy; Z98.890 Other specified postprocedural states; X58.XXXA Exposure to other specified factors, initial encounter; Y93.89 Activity, other specified; Y92.89 Other specified places as the place of occurrence of the external cause
CPT/HCPCS: 27822; 73610; 76000; 87426; 93005; A4930; A6223; A6253; A6402; A6449; A6450; C1713; J0690; J1100; J1170; J2250; J2405; J2704; J3010; J3490; A4223; A4657; A6455